=== PATIENT | female | born 1995 | race Caucasian/White ===

== ENCOUNTER 2020-10-15 20:06 | Emergency (ER) | payer OTHER ==
[2020-10-15 22:28] LABS: HEMOGLOBIN 13.4 gm/dl (12.3-15.3); RED BLOOD COUNT 4.91 M/UL (4.00-5.10); WHITE BLOOD COUNT 10.5 K/UL (4.5-11.0)
[2020-10-15 22:50] LABS: BUN/CREATININE RATIO 13 (0-10)
[2020-10-16] MEDS ORDERED: PRILOSEC OTC20 MG PO (00:19)
[2020-10-16] MEDS ORDERED: BENTYL 20MG TAB20 MG PO (00:19)
[2020-10-16] MEDS ORDERED: ZOFRAN 4 MG TAB4 MG PO (00:19)
== END 2020-10-16 00:45 | disposition home or self-care (01) ==
LOC: ER1 20:06
PROVIDERS: Internal Medicine
DX: K21.9 Gastro-esophageal reflux disease without esophagitis (principal); R10.84 Generalized abdominal pain
CPT/HCPCS: 80053; 81001; 82150; 83690; 84702; 85025; 96374; 96375; 96376; 99284; J2060; J2270; J2405; Q9967

== ENCOUNTER 2021-05-23 12:45 | Emergency (ER) | payer OTHER ==
[~2021-05-23] VITALS: Ht 167.6 cm; Wt 119.3 kg
[~2021-05-23 12:45] MED LIST: BENTYL 20MG TAB20 MG PO; PRILOSEC OTC20 MG PO; ZOFRAN 4 MG TAB4 MG PO
[2021-05-23 13:50] LABS: HEMOGLOBIN 12.4 gm/dl (12.3-15.3); RED BLOOD COUNT 4.61 M/UL (4.00-5.10); WHITE BLOOD COUNT 4.2 K/UL (4.5-11.0)
[2021-05-23 14:09] LABS: BUN/CREATININE RATIO 12 (0-10)
== END 2021-05-23 19:55 | disposition home or self-care (01) ==
LOC: ER1 12:45
PROVIDERS: Emergency Medicine
DX: U07.1 COVID-19 (principal); Z23 Encounter for immunization
CPT/HCPCS: 71045; 80053; 82550; 82553; 83874; 84484; 84703; 85025; 85379; 93005; 99284; M0243; Q9967

== ENCOUNTER 2021-09-01 23:34 | Emergency (ER) | payer OTHER ==
[2021-09-02 00:56] LABS: HEMOGLOBIN 12.7 gm/dl (12.3-15.3); RED BLOOD COUNT 4.89 M/UL (4.00-5.10); WHITE BLOOD COUNT 5.4 K/UL (4.5-11.0)
[2021-09-02 01:55] LABS: BUN/CREATININE RATIO 14 (0-10)
== END 2021-09-02 02:35 | disposition left against medical advice (07) ==
LOC: ER1 23:34
PROVIDERS: Physician Assistant
DX: R07.9 Chest pain, unspecified (principal); E11.9 Type 2 diabetes mellitus without complications
CPT/HCPCS: 71045; 80053; 80307; 82009; 82550; 82553; 83605; 83690; 83735; 83874; 84439; 84443; 84484; 85025; 93005; 99284; G0480

== ENCOUNTER → 2021-12-22 | Outpatient (CLI) | payer OTHER | LOC: LAB 12:28 | DX: Z32.00 Encounter for pregnancy test, result unknown (principal) | CPT/HCPCS: 36415; 84702 ==